=== PATIENT | female | born 1955 | race Two or more races ===

== ENCOUNTER 2020-09-02 10:21 | Outpatient (CLI) | payer OTHER | END 2020-09-02 18:00 | disposition home or self-care (01) | LOC: LAB 10:21 → EDBD 10:21 → LAB 18:00 | DX: U07.1 COVID-19 (principal); R50.9 Fever, unspecified ==

== ENCOUNTER 2020-09-03 07:17 | Outpatient (CLI) | payer OTHER | END 2020-09-03 07:34 | disposition home or self-care (01) | LOC: LAB 07:17 → EDBD 07:17 → LAB 07:34 | DX: R73.01 Impaired fasting glucose (principal); E78.5 Hyperlipidemia, unspecified; E55.9 Vitamin D deficiency, unspecified; E53.8 Deficiency of other specified B group vitamins; E03.8 Other specified hypothyroidism ==

== ENCOUNTER → 2020-11-27 09:45 | Outpatient (CLI) | payer OTHER | END | disposition home or self-care (01) | LOC: LAB 09:45 | DX: U07.1 COVID-19 (principal); I66.8 Occlusion and stenosis of other cerebral arteries ==